=== PATIENT | male | born 1975 | race Caucasian/White ===

== ENCOUNTER 2022-02-25 13:32 | Emergency (ER) | payer MEDICAID ==
[~2022-02-25] VITALS: Ht 182.9 cm; Wt 102.0 kg
[2022-02-25] MEDS ORDERED: HYDROCODONE/ACETAMINOPHEN 5/325MG TABLET PO ONE (14:30)
[2022-02-25] MEDS ORDERED: TRAM50TA MT (16:03)
[2022-02-25] MEDS ORDERED: IBUP-2030 MT (16:03)
[2022-02-25 16:41] VITALS: BP 147/80
== END 2022-02-25 16:42 | disposition home or self-care (01) ==
LOC: ER 13:46
DX: S69.91XA Unspecified injury of right wrist, hand and finger(s), initial encounter (principal); X58.XXXA Exposure to other specified factors, initial encounter; Y93.89 Activity, other specified; Y92.89 Other specified places as the place of occurrence of the external cause; Y99.8 Other external cause status
CPT/HCPCS: 29125; 73110; 73130; 99284

== ENCOUNTER 2023-09-09 20:16 | Emergency (ER) | payer MEDICAID ==
[~2023-09-09] VITALS: Ht 182.9 cm; Wt 109.0 kg
[~2023-09-09 20:16] MED LIST: IBUP-2030 MT; TRAM50TA MT
[2023-09-09 20:31] VITALS: BP 174/108; PULSE 76; RESP 16; TEMP 97.8; O2SAT 94
== END 2023-09-10 01:19 | disposition left against medical advice (07) ==
LOC: ER 20:16
DX: R07.89 Other chest pain (principal)
CPT/HCPCS: 71045; 99283

== ENCOUNTER 2024-09-11 09:26 | Emergency (ER) | payer MEDICAID, MEDICARE ==
[~2024-09-11] VITALS: Ht 182.9 cm; Wt 106.0 kg
[2024-09-11 09:45] VITALS: BP 159/98; O2SAT 96
[2024-09-11] MEDS: ACETAMINOPHEN 325MG TABLET PO ONE (10:34)
[2024-09-11 11:08] LABS: BASOPHILS % 0.4 % (0.0-2.0); EOSINOPHILS % 0.2 % (0.0-5.0); HEMATOCRIT. 42.8 % (42.0-52.0); HEMOGLOBIN. 14.1 g/dL (14.0-18.0); LYMPHOCYTES % 16.3 % (20.0-50.0); MEAN CORPUSCULAR HEMOGLOBIN 30.8 pg (28.0-32.0); MEAN CORPUSCULAR VOLUME 93.3 fL (80.0-94.0); MONOCYTES % 6.3 % (2.0-8.0); NEUTROPHILS % 76.8 % (40.0-76.0); PLATELET 131 x1000/uL (130-400); RED BLOOD CELL COUNT 4.59 mill/uL (4.7-6.1); RED CELL DISTRIBUTION WIDTH 14.8 % (11.6-14.6)
[2024-09-11 11:18] LABS: CHLORIDE 107 mEq/L (98-107); POTASSIUM 3.6 mEq/L (3.5-5.1); SODIUM 142 mEq/L (136-145)
[2024-09-11 11:19] LABS: CALCIUM 9.7 mg/dL (8.7-10.4); CARBON DIOXIDE 28 mEq/L (21-32)
[2024-09-11 11:24] LABS: GLUCOSE 108 mg/dL (70-105); UREA NITROGEN BLOOD 10 mg/dL (9-23)
[2024-09-11] MEDS ORDERED: IBUP-2028 MT (12:44)
[2024-09-11] MEDS ORDERED: ACET-2708 MT (12:44)
[2024-09-11 13:23] VITALS: PULSE 69; RESP 16; TEMP 36.66960; O2SAT 97
== END 2024-09-11 13:36 | disposition home or self-care (01) ==
LOC: ER 09:26
DX: R10.84 Generalized abdominal pain (principal); M54.2 Cervicalgia; V29.99XA Rider (driver) (passenger) of other motorcycle injured in unspecified traffic accident, initial encounter; Y93.89 Activity, other specified; Y92.89 Other specified places as the place of occurrence of the external cause; Y99.8 Other external cause status
CPT/HCPCS: 36415; 71260; 74177; 80048; 85025; 99285; 99291

== ENCOUNTER 2024-12-03 18:32 | Emergency (ER) | payer OTHER ==
[~2024-12-03] VITALS: Ht 182.9 cm; Wt 107.0 kg
[~2024-12-03 18:32] MED LIST changes: +ACET-2708 MT; +IBUP-2028 MT
[2024-12-03 18:42] VITALS: O2SAT 97
[2024-12-03] MEDS: HYDROCODONE/ACETAMINOPHEN 5/325MG TABLET PO ONE (21:11)
[2024-12-03 21:16] LABS: CLARITY URINE CLEAR (CLEAR); COLOR URINE YELLOW (YELLOW); GLUCOSE URINE NEGATIVE (NEGATIVE); KETONES URINE NEGATIVE (NEGATIVE); LEUKOCYTE ESTERASE URINE TRACE (NEGATIVE); NITRITE URINE NEGATIVE (NEGATIVE); OCCULT BLOOD URINE NEGATIVE (NEGATIVE); PROTEIN URINE NEGATIVE (NEGATIVE); SPECIFIC GRAVITY URINE 1.012 (1.005-1.030)
[2024-12-03 21:21] LABS: BASOPHILS % 0.5 % (0.0-2.0); EOSINOPHILS % 1.7 % (0.0-5.0); HEMATOCRIT. 40.4 % (42.0-52.0); HEMOGLOBIN. 13.7 g/dL (14.0-18.0); LYMPHOCYTES % 26.2 % (20.0-50.0); MEAN CORPUSCULAR HEMOGLOBIN 31.7 pg (28.0-32.0); MEAN CORPUSCULAR HGB CONC 33.8 g/dL (31.0-37.0); MEAN CORPUSCULAR VOLUME 93.9 fL (80.0-94.0); MEAN PLATELET VOLUME 8.4 fl (7.4-10.4); MONOCYTES % 6.8 % (2.0-8.0); NEUTROPHILS % 64.8 % (40.0-76.0); PLATELET 170 x1000/uL (130-400); RED BLOOD CELL COUNT 4.31 mill/uL (4.7-6.1); RED CELL DISTRIBUTION WIDTH 13.5 % (11.6-14.6); WHITE BLOOD COUNT 6.3 x1000/uL (4.5-11.0)
[2024-12-03 21:28] LABS: CHLORIDE 104 mEq/L (98-107); POTASSIUM 4.2 mEq/L (3.5-5.1); SODIUM 141 mEq/L (136-145)
[2024-12-03 21:29] LABS: CALCIUM 9.5 mg/dL (8.7-10.4); CARBON DIOXIDE 29 mEq/L (21-32)
[2024-12-03 21:31] LABS: BACTERIA URINE NONE SEEN; RBC URINE NONE SEEN /hpf (0-2); SQUAMOUS EPITHELIAL CELL URINE RARE /lpf (RARE/1+); WBC URINE 0-2 /hpf (0-2)
[2024-12-03 21:34] LABS: CREATININE 0.9 mg/dL (0.6-1.3); GLUCOSE 89 mg/dL (70-105); UREA NITROGEN BLOOD 10 mg/dL (9-23)
[2024-12-03 21:36] LABS: ALANINE AMINOTRANSFERASE 17 IU/L (10-49); ALBUMIN 4.7 g/dL (3.2-4.8); ASPARTATE AMINOTRANSFERASE 19 IU/L (<34); BILIRUBIN DIRECT 0.2 mg/dL (<=3.0); BILIRUBIN TOTAL 0.7 mg/dL (0.1-1.0)
[2024-12-03] MEDS: IOHEXOL-300 100 ML BOTTLE ONE (23:37)
[2024-12-03 23:38] VITALS: BP 158/88; PULSE 94; RESP 18; TEMP 37.1; O2SAT 98
== END 2024-12-03 23:39 | disposition home or self-care (01) ==
LOC: ER 18:32
DX: S30.0XXA Contusion of lower back and pelvis, initial encounter (principal); Z79.899 Other long term (current) drug therapy; Z91.018 Allergy to other foods; W10.9XXA Fall (on) (from) unspecified stairs and steps, initial encounter; Y93.89 Activity, other specified; Y92.89 Other specified places as the place of occurrence of the external cause; Y99.8 Other external cause status
CPT/HCPCS: 99285; 72131; 80076; 80048; 81003; 85025; 36415; 74177; Q9967